=== PATIENT | male | born 1970 | race Caucasian/White ===

== ENCOUNTER 2017-06-28 08:36 | Emergency (ER) | payer BC ==
[2017-06-28 09:13] VITALS: BP 127/80
--- NOTE | 2017-06-28 09:47 | UC ---
Ear Complaint HPI - HPI Summary HPI Summary: 37 yo male with URI sxs x a week went on flight left otalgia and decreased hearing - History of Current Complaint Chief Complaint: UCRespiratory Stated Complaint: EAR PAIN Time Seen by Provider: 06/28/17 09:36 Hx Obtained From: Patient Onset/Duration: Gradual Onset, Lasting Days Severity Initially: Mild Severity Currently: Mild Pain Intensity: 4 Pain Scale Used: 0-10 Numeric Alleviating Factors: Nothing Associated Signs/Symptoms: Positive: Hearing Loss, URI Symptoms Related History: Seasonal Allergies - Allergies/Home Medications Allergies/Adverse Reactions: Allergies Allergy/AdvReac Type Severity Reaction Status Date / Time No Known Allergies Allergy Verified 07/09/14 12:23 Home Medications: Home Medications Atorvastatin* [Lipitor*] 10 mg PO QPM 06/28/17 [History Confirmed 06/28/17] Fluticasone NASAL SPRAY 50MCG* [Flonase NASAL SPRAY 50MCG*] 2 spray BOTH NARES DAILY 06/28/17 [History Confirmed 06/28/17] Fluticasone/Vilanterol MDI(NF) [Breo Ellipta MDI (NF)] 1 puff INH DAILY [History Confirmed 06/28/17] [place] 2 tab PO BID 06/28/17 [History Confirmed 06/28/17] Pseudoephedrine-Guaifenesin [Mucinex D 60-600 mg] 2 tab PO BID PRN 06/28/17 [ History Confirmed 06/28/17] PMH/Surg Hx/FS Hx/Imm Hx Previously Healthy: Yes Endocrine History: Dyslipidemia Respiratory History: Asthma - Surgical History Surgical History: Yes Surgery Procedure, Year, and Place: tonsils - Family History Known Family History: Positive: Cardiac Disease, Hypertension - Social History Alcohol Use: Occasionally Substance Use Type: None Smoking Status (MU): Never Smoked Tobacco Have You Smoked in the Last Year: No Review of Systems Constitutional: Negative Skin: Negative Eyes: Eye Redness - resolved after using prescription drops ENT: Ear Ache, Nasal Discharge, Sinus Congestion, Sinus Pain/Tenderness Respiratory: Negative Cardiovascular: Negative Gastrointestinal: Negative Genitourinary: Negative Motor: Negative Neurovascular: Negative Musculoskeletal: Negative Neurological: Negative Psychological: Negative All Other Systems Reviewed And Are Negative: Yes Physical Exam Triage Information Reviewed: Yes Appearance: Well-Appearing, No Pain Distress, Well-Nourished Vital Signs: Initial Vital Signs Temp 98 F 06/28/17 09:06 Pulse 71 06/28/17 09:06 Resp 20 06/28/17 09:06 BP 127/80 06/28/17 09:06 Vital Signs Reviewed: Yes Eyes: Positive: Conjunctiva Clear ENT: Positive: TM bulging - left. Negative: Hearing grossly normal, TMs normal - bubbles behind R Neck: Positive: Supple, Nontender Respiratory: Positive: Lungs clear, Normal breath sounds, No respiratory distress, No accessory muscle use Cardiovascular: Positive: RRR, No Murmur Musculoskeletal: Positive: ROM Intact, No Edema Neurological: Positive: Alert Psychological Exam: Normal Skin Exam: Normal Ear Complaint Course/Dx - Differential Dx/Diagnosis Provider Diagnoses: viral URI. serous otitis media Discharge - Discharge Plan Condition: Stable Disposition: HOME Prescriptions: Amoxicillin PO (*) [Amoxicillin 875 MG (*)] 875 mg PO BID #20 tab Patient Education Materials: Serous Otitis Media (ED) Referrals: SUDHA Caballero [Primary Care Provider] - 2 Weeks (if not better ) Additional Instructions: continue flonase saline nasal spray twice daily recheck for worsening symptoms
== END 2017-06-28 09:51 | disposition home or self-care (01) ==
LOC: UCCORT 08:36
DX: J06.9 Acute upper respiratory infection, unspecified (principal); H65.92 Unspecified nonsuppurative otitis media, left ear; E78.5 Hyperlipidemia, unspecified; J45.909 Unspecified asthma, uncomplicated
CPT/HCPCS: 99212; G0463